=== PATIENT | male | born 1955 | race Two or more races ===

== ENCOUNTER 2024-12-28 06:14 | Day surgery (SDC) | payer OTHER, MEDICAID ==
[~2024-12-28] VITALS: Ht 182.9 cm; Wt 108.9 kg
[~2024-12-28 06:14] MED LIST: ALFU1TAB15 PO; ALPR2TAB6 PO; ATOR40TA52 PO; CHOL50004 PO; CLOP75TA70 PO; COEN400C8 OR; DIPH25CA66 PO; EMPA1TAB PO; ESOM20CA PO; FENO145T27 PO; FINA1TAB12 OR; FINE10TA PO; KRIL300C2 PO; LISI-275 PO; MET50T PO; METF-371 PO; MULT-1018 PO
[2024-12-28] MEDS ORDERED: SUCCINYLCHOLINE CHLORIDE 20 MG/ML 10ML VIAL IV ONE (06:40)
[2024-12-28] MEDS ORDERED: ROCURONIUM 10MG/ML 10ML VIAL IV ONE (06:40)
[2024-12-28] MEDS ORDERED: HYDROmorphone HCL 2 MG/ML VL/or syr ONE (06:51)
[2024-12-28] MEDS ORDERED: fentaNYL CITRATE 100 MCG/2 ML VL ONE ×2 (06:51→09:24)
[2024-12-28] MEDS ORDERED: KETAMINE 50mg/ML 1ml syringe ONE (06:51)
[2024-12-28] MEDS ORDERED: SODIUM CHLORIDE LOCK 50 ML ONE (06:52)
[2024-12-28] MEDS ORDERED: LIDOCAINE 1% INJ PF 5ML AMP ONE ×2 (06:52→11:09)
[2024-12-28] MEDS ORDERED: ONDANSETRON HCL 4 MG/2 ML VIAL ONE ×2 (06:52→12:16)
[2024-12-28] MEDS ORDERED: MIDAZOLAM HCL 2MG/2ML 2ml VIAL (1mg/ml) ONE (06:52)
[2024-12-28] MEDS ORDERED: PROPOFOL 10 MG/ML 20 ML IV ONE (06:52)
[2024-12-28] MEDS ORDERED: LIDOCAINE HCL 2% TOP JELLY 5ML TOP ONE (06:52)
[2024-12-28] MEDS ORDERED: HYDROmorphone HCL 2 MG/ML VL/or syr IV PRN ×3 (07:30→10:30)
[2024-12-28] MEDS ORDERED: METOCLOPRAMIDE HCL 5MG/ml INJ 2ml VIAL IV ONE (07:30)
[2024-12-28] MEDS ORDERED: MORPHINE SULFATE 4 MG/ML SYR/VIAL IV PRN (07:30)
[2024-12-28] MEDS ORDERED: ACCU-CHEK COMFORT CURVE STRIP VI ONE (07:30)
[2024-12-28] MEDS ORDERED: MORPHINE SULFATE INJ 2 MG/ml SYRG IV PRN (08:00)
[2024-12-28] MEDS: EPINEPHrine HCL 1 MG/1 ML AMP ONE (08:30)
[2024-12-28] MEDS: ceFAZolin 2 GM/D5W50ml 50 ML IV ONE (08:35)
[2024-12-28] MEDS: TRANEXAMIC ACID 20 ML ONE (09:05)
[2024-12-28] MEDS ORDERED: NEOSTIGMINE 1 MG/ML INJ (10mg/10ML VIAL) ONE (09:06)
[2024-12-28] MEDS ORDERED: GLYCOPYRROLATE 0.2 MG/ML 1ML VIAL ONE (09:06)
--- NOTE | 2024-12-28 09:47 | DVHOP2 ---
Operative Report - 2 Report Details Date: 12/28/24 Preop Diagnosis: Right shoulder rotator cuff tear and subacromial impingement Postop Diagnosis: Right shoulder rotator cuff tear and subacromial impingement Surgeon: Katelyn Oh MD Track Sweeper: CARINA Lorenz Anesthesiologist: Dr Craft Anesthesia: General, Regional Implant: Medacta all suture triple loaded anchor x1, osseo bioabsorbable anchor x2 Consent: The patient was informed of the risks and benefits of the procedure. These include but are not limited to complications of anesthesia, postoperative infection, incomplete relief of symptoms, recurrence of symptoms, damage to blood vessels, nerves and tendons, deep venous thrombosis, pulmonary embolism and possible need for repeat surgery in the future. Complications: None Estimated Blood Loss: Less than 5 mL Indications for Surgery: The patient is a 69-year-old who presented to the clinic with a history of chronic right shoulder pain. Clinical and radiological evaluation demonstrated near complete rotator cuff tear. Subscapularis large tear was noted. Benefits, risks and treatment alternatives were discussed. Specific complications of the surgery such as neurovascular injury, infection, arthrofibrosis, loss of limb or life were discussed. The patient had failed extensive nonoperative management and wanted to proceed with the surgery. Name of Procedure Performed Right shoulder arthroscopy, extensive debridement, subacromial decompression with acromioplasty, rotator cuff repair including subscapularis Procedure Details Procedure Details: The patient was identified in the preoperative holding area and the surgical site was marked. The consent was verified. The patient was brought into the operating room and placed supine on the operating table. General anesthesia was administered. The beachchair attachment was applied to the operating table. The patient was now brought up into the beachchair position, approximately 60 degrees. The arm was prepped and draped in the usual sterile manner. The arm was placed in the attachment for the spyder, mechanical arm spring. The extremity was examined under anesthesia and was found to have good passive range of motion. A timeout was performed to confirm the identity of the patient, the nature of surgery, the site of surgery, the available of implants and x-rays and allergies to medications A standard posterior portal established. A 30 degree scope was inserted A standard anterior portal was established. A probe was inserted and the findings are as follows: 1. Large significantly retracted subscapularis tendon 2. Mild fraying of the biceps tendon 3. Circumferential degenerative labral tear 4. Grade I-II chondromalacia 5. Significant synovitis 6. Near Full-thickness rotator cuff tear, medium-sized with retraction to humeral head cartilage The subscapularis there was a massive tear. It was significantly retracted. I used a 70 degree scope to free all the adhesions. Extensive debridement of the head to be done for this step for this step. Care had to be taken for the neurovascular bundle as well. Two fiber wire tapes were inserted through the subscapularis tendon. These were now inserted into the osseo anchor. A tap was used to create a hole. The sutures were now inserted into that for a good subscapularis tendon closure. It should be noted that the tendon quality was very poor. However the step was necessary to restore the rotator cuff cable and balance. It would also help stabilize the biceps tendon. High-grade articular surface tear, more than 90% was noted. This corresponded to the MRI findings of severe edema within the rotator cuff tendons suggestive of functional rotator cuff tear. This was taken down from the bursal side. A thorough bursectomy was carried out. CA ligament was released. A thermal ablation device was used to release the rotator cuff tendon off the footprint. This was a medium-sized tear. Minimal retraction was noted. I decided to do a double row repair. A medial row anchor was inserted. A lateral portal was created. The scope was inserted into this portal. An anterolateral portal was created, a cannula was inserted. Excellent visualization was obtained after hemostasis and debridement. A percutaneous superior portal established. A drill guide was inserted. A drill was inserted and the anchor was inserted and deployed. This was a triple loaded anchor. All the sutures were now passed through the rotator cuff tendon. The sutures were tied for excellent medial row fixation. The tapes were not tied. All the sutures were now brought into the lateral row anchor and inserted into the greater tuberosity. Excellent fixation was noted. Watertight closure was noted. Subacromial decompression was completed with acromioplasty to remove approximately 5 mm of acromion as it was downsloping in nature. Irrigation was given and the skin portals were closed with 2-0 nylon Sterile dressing was applied. Local anesthetic was given. Shoulder immobilizer was applied Disposition: Good, the patient was extubated and taken to recovery without any complications. The patient was examined in the recovery and had intact neurovascular exam Plan: To remain in the brace. Follow-up in 1 week. Condition Good Disposition Home KATELYN OH MD December 28, 2024 09:47
[2024-12-28 09:57] VITALS: PULSE 72; RESP 26; TEMP 97; O2SAT 87
[2024-12-28] MEDS: KETOROLAC TROMETH 30 MG/ML 1ML VIAL IV ONE (10:14)
[2024-12-28] MEDS: HYDROmorphone HCL 2 MG/ML VL/or syr IV PRN (10:31)
[2024-12-28] MEDS: ALPRAZolam 0.5 MG TAB PO STA (10:54)
[2024-12-28 11:13] VITALS: PULSE 61; RESP 12; O2SAT 100
[2024-12-28] MEDS ORDERED: ROPIVACAINE 0.5% (5MG/ML) 20ML AMPULE IJ ONE (11:16)
[2024-12-28 11:42] VITALS: BP 161/81; PULSE 64; RESP 14; O2SAT 99
[2024-12-28] MEDS ORDERED: DexAMETHasone SOD PHOS 10MG/1ML VIAL INJ ONE (12:16)
== END 2024-12-28 12:00 | disposition home or self-care (01) ==
LOC: SUR 06:14
PROVIDERS: ATTEND Orthopaedic Surgery Sports Medicine
DX: M75.121 Complete rotator cuff tear or rupture of right shoulder, not specified as traumatic (principal); M25.811 Other specified joint disorders, right shoulder; I10 Essential (primary) hypertension; E11.9 Type 2 diabetes mellitus without complications; F41.9 Anxiety disorder, unspecified; E78.00 Pure hypercholesterolemia, unspecified; F17.200 Nicotine dependence, unspecified, uncomplicated; Z79.899 Other long term (current) drug therapy; Z98.890 Other specified postprocedural states; Z95.1 Presence of aortocoronary bypass graft; M94.211 Chondromalacia, right shoulder; M65.811 Other synovitis and tenosynovitis, right shoulder; S43.431A Superior glenoid labrum lesion of right shoulder, initial encounter; X58.XXXA Exposure to other specified factors, initial encounter; Y93.89 Activity, other specified; Y92.89 Other specified places as the place of occurrence of the external cause; Y99.8 Other external cause status
CPT/HCPCS: 29823; 29826; 29827; 64415; 82962; C1713; J0171; J0330; J0690; J1100; J1171; J1885; J2250; J2405; J2704; J2795; J3010; A4565

== ENCOUNTER 2025-04-01 14:31 | Inpatient (IN) | payer OTHER, MEDICAID ==
[2025-04-01] VITALS (10 sets, daily range): BP systolic 98–128; BP diastolic 36–80; PULSE 88–97; RESP 18–31; TEMP 98–98.1; O2SAT 94–96
[~2025-04-01] VITALS: Ht 182.9 cm; Wt 108.6 kg
--- NOTE | 2025-04-01 14:43 | ED.PDOC ---
History of Present Illness HPI Comments 69-year-old male brought from [facility] because of a saddle PE which was diagnosed this morning. Patient was seen at [facility] for shortness a breath. His saturation was 89% on room air. He has been feeling short of breath since yesterday progressively getting worse to this morning. Was placed on oxygen had a CT angiogram which showed saddle pulmonary embolus with right ventricular strain. Patient has stopped taking his Plavix three weeks ago because he had a prostate surgery. He does have a history of coronary artery disease hypertension. Denies any other symptoms. Time Seen by MD: 14:33 Reviewed Notes: Nurses Notes, Medications, Allergies Allergies: Coded Allergies: NO KNOWN ALLERGIES (Unverified , 07/06/18) Home Meds Reported Medications Cholecalciferol (D-3-5) 5,000 Unit Cap, 2000 UNIT PO DAILY, CAP 12/23/24 Esomeprazole Magnesium Trihydr (Nexium) 20 Mg Cap, 20 MG PO DAILY, CAP 12/23/24 Empagliflozin (Jardiance) 10 Mg Tab, 10 MG PO DAILY, TAB 12/23/24 Krill Oil (KRILL OIL) 300 Mg Cap, 1000 MG PO DAILY, CAP 12/23/24 Coenzyme Q10 (Ubidecarenone) (COQ-10) 400 Mg Cap, 100 MG OR DAILY, CAP 12/23/24 Multiple Vitamin (Multivitamins) Tab, 1 TAB PO DAILY, #30 TAB 2 Refills 12/23/24 Finasteride (FINASTERIDE) 1 Mg Tab, 5 MG OR DAILY, TAB 12/23/24 Clopidogrel Bisulfate (CLOPIDOGREL) 75 Mg Tab, 75 MG PO DAILY, TAB 12/23/24 Atorvastatin Calcium (ATORVASTATIN CALCIUM) 40 Mg Tab, 40 MG PO DAILY, TAB 12/23/24 Finerenone (Kerendia) 10 Mg Tab, 10 MG PO DAILY, TAB 12/23/24 Alfuzosin Hydrochloride (ALFUZOSIN HCL ER) 10 Mg Tab, 10 MG PO BID, TAB 12/23/24 Diphenhydramine Hcl (Benadryl Allergy) 25 Mg Cap, 50 MG PO BID, CAP 12/23/24 Lisinopril (Lisinopril) 5 Mg Tab, 5 MG PO HS for 30 Days, MG 07/06/18 Metoprolol Tartrate (LOPRESSOR TABLET) 50 Mg Tb, 1 TAB PO BID, #60 TAB 5 Refills 07/06/18 Fenofibrate (FENOFIBRATE) 145 Mg Tab, 145 MG PO HS, TAB 07/06/18 Alprazolam (Alprazolam) 2 Mg Tab, 1 TAB PO QID, #90 TAB 07/06/18 Metformin Hydrochloride (Metformin Hcl) 850 Mg Tab, 850 MG PO DAILY for 30 Days, MG 07/06/18 Information Source: Patient, Emergency Med Personnel Mode of Arrival: EMS Severity: Moderate Timing: Hours Duration: Since onset Past Medical History PAST MEDICAL HISTORY: CAD, HTN Surgical History: Denies all surgeries Social History Smoker: Non-Smoker Alcohol: Denies ETOH Use Drugs: Denies Drug Use Constitutional: denies: chills, diaphoresis, fatigue, fever, malaise, sweats, weakness, others EENTM: denies: blurred vision, double vision, ear bleeding, ear discharge, ear drainage, ear pain, ear ringing, eye pain, eye redness, hearing loss, mouth pain, mouth swelling, nasal discharge, nose bleeding, nose congestion, nose pain, photophobia, tearing, throat pain, throat swelling, voice changes, others Respiratory: reports: shortness of breath; denies: cough, hemoptysis, orthopnea, SOB at rest, SOB with excertion, stridor, wheezing, others Cardiovascular: reports: chest pain; denies: dizzy spells, diaphoresis, Dyspnea on exertion, edema, irregular heart beat, left arm pain, lightheadedness, palpitations, PND, syncope, others Gastrointestinal: denies: abdomen distended, abdominal pain, blood streaked bowels, constipated, diarrhea, dysphagia, difficulty swallowing, hematemesis, melena, nausea, poor appetite, poor fluid intake, rectal bleeding, rectal pain, vomiting, others Genitourinary: denies: burning, dysuria, flank pain, frequency, hematuria, incontinence, penile discharge, penile sore, pain, testicle pain, testicle swelling, urgency, others Neurological: denies: dizziness, fainting, headache, left sided numbness, left sided weakness, numbness, paresthesia, pre-existing deficit, right sided numbness, right sided weakness, seizure, speech problems, tingling, tremors, weakness, others Musculoskeletal: denies: back pain, gout, joint pain, joint swelling, muscle pain, muscle stiffness, neck pain, others Integumetry: denies: bruises, change in color, change in hair/nails, dryness, laceration, lesions, lumps, rash, wounds, others Allergic/Immunocompromised: denies: Difficulty Healing, Frequent Infections, Hives, Itching, others Hematologic/Lymphatic: denies: anemia, blood clots, easy bleeding, easy bruising, swollen glands, others Endocrine: denies: excessive hunger, excessive sweating, excessive thirst, excessive urination, flushing, intolerance to cold, intolerance to heat, unexplained weight gain, unexplained weight loss, others Psychiatric: denies: anxiety, bipolar disorder, depression, hopeless, panic disorder, schizophrenia, sleepless, suicidal, others Physical Exam General Appearance: Moderate Distress HEENT: Normal ENT Inspection, Pharynx Normal, TMs Normal Neck: Full Range of Motion, Non-Tender, Normal, Normal Inspection Respiratory: Chest Non-Tender, Lungs Clear, No Accessory Muscle Use, No Respiratory Distress, Normal Breath Sounds Cardiovascular: Tachycardia Breast Exam: Deferred Gastrointestinal: No Organomegaly, Non Tender, No Pulsatile Mass, Normal Bowel Sounds, Soft Genitalia: Deferred Pelvic: Deferred Rectal: Deferred Extremities: No calf tenderness, Normal capillary refill, Normal inspection, Normal range of motion, Non-tender, No pedal edema Musculoskeletal : Apperance: Normal Neurologic: Alert, office specialist II-XII nml as Tested, No Motor Deficits, Normal Affect, Normal Mood, No Sensory Deficits Cerebellar Function: NOT DONE Reflexes: NOT DONE Skin: Dry, Normal Color, Warm Peripheral Pulses: 3+ Radial (R), 3+ Radial (L) Lymphatic: No Adenopathy Was a procedure done? Was a procedure done?: No EKG EKG : Cardiac Rhythm: ST Differential Dx Considerations may include: Pulmonary embolus Electrolyte imbalance X-Ray, Labs, Meds, VS Patient alert. Placed on oxygen. Diagnosed with pulmonary embolus. Vitals stable. EKG reviewed does not show any acute changes. Radiology consultation for thrombectomy. Echocardiogram. Heparin drip. Explained to the patient. Continue monitoring. Time of 1ST Reevaluation: 14:41 Reevaluation 1ST: Unchanged Patient Education/Counseling: Diagnosis, Treatment, Prognosis Family Education/Counseling: No Family Present SEPSIS Sepsis Screen Physician Orders Echo 2d Mode Cardiac Dop (04/01/25 14:33) Troponin-I Hs (04/01/25 14:33) Complete Blood Count (04/01/25 14:33) Comprehensive Metabolic Panel (04/01/25 14:33) PTPTT (04/01/25 14:33) Chest Portable (04/01/25 14:33) Urinalysis (04/01/25 14:33) * Radiologist Consult (04/01/25 14:33) Chest Portable (04/01/25 14:33) [employer] (04/01/25 14:33) Blood Pressure (04/01/25 14:33) Pulse Oximetry (04/01/25 14:33) Sodium Chloride Lock (Saline Lock Ns) (04/01/25 22:00) Heparin Drip/D5w 100units/Ml (04/01/25 14:45) Clopidogrel Bisulfate (Plavix) (04/03/25 10:00) Electrocardigram (04/01/25 14:33) Oxygen Per Hour (04/01/25 14:33) Cardiac Rehabilitation - Outpa (04/01/25 ) Departure 1 Departure Time of Disposition: 14:42 Impression: Primary Impression: Pulmonary embolus Qualified Codes: I26.02 - Saddle embolus of pulmonary artery with acute cor pulmonale Disposition: ADMITTED INPATIENT Admit to: Med Surg Condition: Guarded Critical Care Note Critical Care Time?: Yes (90 min-critical care time only) Stability Stability form required: No Heart Score Heart Score: Heart Score Response (Comments) Value History Slightly Suspicious 0 EKG Normal 0 Age >65 2 Risk Factors >3 or Hx ASHD 2 Troponin >3 x's Normal limit 2 Total 6 RONAL WHITEHEAD MD Apr 01, 2025 14:43
[2025-04-01] MEDS: HEPARIN DRIP/D5W 100UNITS/ML 250 ML IV SCH ×2 (14:45→21:30)
[2025-04-01 15:00] LABS: Hematocrit 40.8 % (41.0-53.0); Hemoglobin 13.9 g/dL (13.5-17.5); Mean Corpuscular Hemoglobin 30.2 pg (28.0-32.0); Mean Corpuscular Volume 88.8 fL (80.0-100.0); Nucleated Red Blood Cells % 0.1 %
--- NOTE | 2025-04-01 15:08 | DVH ---
CHEST RADIOGRAPH Indication: STEMI Technique: Single frontal view of the chest was obtained Comparison: None FINDINGS: Lines and Tubes: None Lungs: No focal consolidation. Pleura: No effusion. No pneumothorax. Cardiomediastinal contours: Unremarkable Bones: No acute osseous abnormality. IMPRESSION: 1. No acute cardiopulmonary disease.
[2025-04-01 15:13] LABS: Alanine Aminotransferase 16 U/L (7-40); Albumin 4.1 g/dL (3.2-4.8); Alkaline Phosphatase 66 U/L (46-116); Anion Gap 14 (5-15); BUN/Creatinine Ratio 12.8 (10.0-20.0); Bilirubin, Total 0.3 mg/dL (0.2-1.0); Blood Urea Nitrogen 23 mg/dL (9-23); Calcium 8.6 mg/dL (8.7-10.4); Carbon Dioxide 18 mmol/L (20-31); Chloride 114 mmol/L (98-107); Glucose 137 mg/dL (74-106); Potassium 3.8 mmol/L (3.5-5.1); Sodium 146 mmol/L (136-145); Total Protein 6.3 g/dL (5.7-8.2)
[2025-04-01] MEDS: IODIXANOL 320MG/ML 100ML BTL IV ONE (15:28)
[2025-04-01] MEDS: HEPARIN IN NS 1000Units/500mL 1,500 ML ONE (15:28)
[2025-04-01 15:29] LABS: INR 1.16 (0.9-1.15); Prothrombin Time 12.1 sec (9.3-11.8)
[2025-04-01 15:31] LABS: Partial Thromboplastin Time 101.8 SEC (24.5-34.5)
--- NOTE | 2025-04-01 15:36 | DVHSR ---
APPROVED REPORT EXAM: Two-dimensional and M-mode echocardiogram with Doppler and color Doppler. INDICATION PE? DIMENSIONS LVDd3.6 (3.8-5.7cm)LA (2D) (1.9-4.0cm)Aortic Root3.8 (2.0-3.7cm) LVDs2.7 (2.5-4.0cm)LA (MM) (1.9-4.0cm)Aortic Cusp Exc1.7 (1.5-2.0cm) EF (%) 53.0 (55-70%)Rt. Atrium (1.9-4.0cm)Asc. Aorta cm IVSd1.5 (0.7-1.1cm)RV (D) (1.8-2.4cm) PWd1.9 (0.7-1.1cm) Mitral Valve MitralMitral Stenosis E/A ratio0.02D MVAcm2 Aortic Valve Aortic ValveAortic Stenosis V10.62m/Elier Mean GR.3mmHg V21.11m/Elier Peak GR.5mmHg LVOT Diameter2.5 (1.8-2.4cm)Doppler AVA2.74cm2 Tricuspid Valve TR Velocity3.01m/s [id number] Other Information Technically limited study due to body habitus and patient position. Conclusion lvef 50% RV enlarged and dilated, there is RV dysfunction there is abnormal interventricular septal motion mild Mitral regurg mild to modreate tricuspid regurg
[2025-04-01] MEDS: LIDOCAINE 2%HCL (LOCAL ANESTH.) INJ 20ML MDV ONE (15:55)
[2025-04-01] MEDS: fentaNYL CITRATE 100 MCG/2 ML VL ONE (15:55)
[2025-04-01] MEDS: MIDAZOLAM HCL 2MG/2ML 2ml VIAL (1mg/ml) ONE ×3 (15:55→16:17)
[2025-04-01] MEDS: diphenhdrAMINE HCL 50 MG/1 ML VL ONE (16:25)
[2025-04-01] MEDS: HEPARIN 1,000 UNITS/ml 1ML VIAL ONE (16:34)
[2025-04-01] MEDS ORDERED: MORPHINE SULFATE INJ 2 MG/ml SYRG IV PRN (18:00)
[2025-04-01] MEDS ORDERED: NITROGLYCERIN 0.4 MG SL TAB SL PRN (18:00)
[2025-04-01 19:50] LABS: INR 1.12 (0.9-1.15); Prothrombin Time 11.7 sec (9.3-11.8)
[2025-04-01 20:03] LABS: Partial Thromboplastin Time 136.8 SEC (24.5-34.5)
[2025-04-01] MEDS: SODIUM CHLOR 0.9% PF (SALINE LOCK) 10ML VIAL/SYR IV SCH (22:04)
[2025-04-01 22:16] LABS: INR 1.08 (0.9-1.15); Partial Thromboplastin Time 52.7 SEC (24.5-34.5); Prothrombin Time 11.4 sec (9.3-11.8)
[2025-04-02 01:00] VITALS: BP 91/55; PULSE 78; RESP 18; TEMP 97.1; O2SAT 98
[2025-04-02 04:17] LABS: Hematocrit 38.1 % (41.0-53.0); Hemoglobin 13.2 g/dL (13.5-17.5); Mean Corpuscular Hemoglobin 30.1 pg (28.0-32.0); Mean Corpuscular Volume 87.2 fL (80.0-100.0); Nucleated Red Blood Cells % 0.0 %
[2025-04-02 04:37] LABS: Alanine Aminotransferase 16 U/L (7-40); Albumin 4.4 g/dL (3.2-4.8); Alkaline Phosphatase 69 U/L (46-116); Anion Gap 13 (5-15); BUN/Creatinine Ratio 14.0 (10.0-20.0); Calcium 9.4 mg/dL (8.7-10.4); Carbon Dioxide 22 mmol/L (20-31); Potassium 4.1 mmol/L (3.5-5.1); Sodium 142 mmol/L (136-145); Total Protein 6.6 g/dL (5.7-8.2)
[2025-04-02 04:38] LABS: Bilirubin, Total 0.4 mg/dL (0.2-1.0); Blood Urea Nitrogen 29 mg/dL (9-23); Chloride 107 mmol/L (98-107); Glucose 141 mg/dL (74-106)
[2025-04-02 08:00] VITALS: PULSE 86; RESP 18
[2025-04-02 09:00] VITALS: BP 124/80; PULSE 87; RESP 17; TEMP 97.9; O2SAT 94
[2025-04-02 11:52] LABS: INR 1.11 (0.9-1.15); Prothrombin Time 11.6 sec (9.3-11.8)
[2025-04-02 11:56] LABS: Partial Thromboplastin Time 72.3 SEC (24.5-34.5)
[2025-04-02 14:38] LABS: Urine Protein, UAD 1+ (Negative)
--- NOTE | 2025-04-02 16:28 | DVHHP2 ---
History of Present Illness Reason for Visit: Shortness of breaths History of Present Illness 69-year-old male brought from [facility] because of a saddle PE which was diagnosed this morning. Patient was seen at [facility] for shortness a breath. His saturation was 89% on room air. He has been feeling short of breath since yesterday progressively getting worse to this morning. Was placed on oxygen had a CT angiogram which showed saddle pulmonary embolus with right ventricular strain. Patient has stopped taking his Plavix three weeks ago because he had a prostate surgery. He does have a history of coronary artery disease hypertension. Denies any other symptoms. Patient apparently taken to the laborer [facility] p[facility] for thrombectomy. Subsequently was admitted to hospital overnight. Today I was called to take over patient's care given he belongs to [facility]. Patient clinically stable at present. Had an echocardiogram. No complaints of chest pain or shortness for breath. Past Medical History CAD, HTN Past Surgical History: None Family History: Hyperlipidemia, Hypertension Smoke: No ALCOHOL: occassional Lives: with Family Review of Systems Review of Systems No complaints of chest pain or shortness for breath. Other review of systems reviewed normal Allergies: Coded Allergies: NO KNOWN ALLERGIES (Unverified , 07/06/18) Medications Current Medications Medications Dose Ordered Sig/Raymundo Route Start Time Stop Time Status Last Admin Dose Admin Sodium Chloride 10 ml Q8HR IV 04/01/25 22:00 04/02/25 14:00 10 ML Clopidogrel Bisulfate 75 mg DAILY PO 04/03/25 10:00 Nitroglycerin 0.4 mg Q5MINP PRN SL 04/01/25 18:00 Morphine Sulfate 2 mg Q30M PRN IV 04/01/25 18:00 Heparin Sodium/ Dextrose 250 ml @ 15 mls/hr [id number] IV 04/01/25 21:30 04/02/25 02:17 15 MLS/HR Exam Vital Signs Vital Signs Date Time Temp Pulse Resp B/P (MAP) Pulse Ox O2 Delivery O2 Flow Rate FiO2 04/02/25 09:00 97.9 87 17 124/80 (95) 94 97.9 04/01/25 20:00 Room Air* 0 21 Exam Alert awake oriented to place and person comfortable in bed without distress. HEENT neck supple no JVD. Heart regular rate and rhythm S1-S2. Lungs fair air movement without rales wheezes. Abdomen obese soft nontender positive bowel sounds. Extremities no edema positive distal pedal pulses. Labs/Xrays Labs Test 04/02/25 15:30 04/02/25 12:00 04/02/25 03:58 04/01/25 14:46 Range/Units Urine Color Red H Yellow Urine Clarity Ex. turbid Clear Urine pH 7.5 5.0-9.0 Urine Specific [place] 1.025 1.001-1.035 Urine Protein 1+ H Negative Urine Ketones Negative Negative Urine Blood 3+ H Negative /uL Urine Nitrite Negative Negative Urine Bilirubin Negative Negative Urine Urobilinogen Normal Negative mg/dL Urine Leukocyte Esterase 1+ Negative /uL Urine Glucose 4+ H Normal mg/dL White Blood Count 7.4 # 4.4-10.8 10^3/uL Red Blood Count 4.37 L 4.5-5.90 10^6/uL Hemoglobin 13.2 L 13.5-17.5 g/dL Hematocrit 38.1 L 41.0-53.0 % Mean Corpuscular Volume 87.2 80.0-100.0 fL Mean Corpuscular Hemoglobin 30.1 28.0-32.0 pg Mean Corpuscular Hemoglobin Concent 34.6 32.0-36.0 g/dL Red Cell Distribution Width 14.8 H 11.8-14.3 % Platelet Count 204 140-450 10^3/uL Mean Platelet Volume 7.4 6.9-10.8 fL Neutrophils (%) (Auto) 53.3 37.0-80.0 % Lymphocytes (%) (Auto) 32.3 10.0-50.0 % Monocytes (%) (Auto) 9.1 0.0-12.0 % Eosinophils (%) (Auto) 4.2 0.0-7.0 % Basophils (%) (Auto) 1.1 0.0-2.0 % Neutrophils # (Auto) 3.9 1.6-8.6 10 ^3/uL Lymphocytes # (Auto) 2.4 0.4-5.4 10 ^3/uL Monocytes # (Auto) 0.7 0-1.3 10 ^3/uL Eosinophils # (Auto) 0.3 0-0.8 10 ^3/uL Basophils # (Auto) 0.1 0-0.2 10 ^3/uL Nucleated Red Blood Cells 0.0 % Sodium Level 142 136-145 mmol/L Potassium Level 4.1 3.5-5.1 mmol/L Chloride Level 107 98-107 mmol/L Carbon Dioxide Level 22 20-31 mmol/L Anion Gap 13 5-15 Blood Urea Nitrogen 29 H 9-23 mg/dL Creatinine 2.07 H 0.700-1.30 mg/dL Glomerular Filtration Rate Calc 34 >90 mL/min BUN/Creatinine Ratio 14.0 10.0-20.0 Serum Glucose 141 H 74-106 mg/dL Calcium Level 9.4 8.7-10.4 mg/dL Total Bilirubin 0.4 0.2-1.0 mg/dL Aspartate Amino Transferase (AST) 24 13-40 U/L Alanine Aminotransferase (ALT) 16 7-40 U/L Alkaline Phosphatase 69 46-116 U/L Total Protein 6.6 5.7-8.2 g/dL Albumin 4.4 3.2-4.8 g/dL Troponin I High Sensitivity 400 *H </=54 ng/L SEPSIS Sepsis Screen Date sepsis recognized/suspect: Apr 01, 2025 Time Sepsis recognized/suspect: 1429 Recent Procedure: No On Antibiotic Therapy: No Respiratory Rate >20: Yes Heart Rate >90: Yes Temp<36 C (96.8 F) or >38.3 C: No SBP <90 or MAP <65 mmHG: No New Acute Mental Status Change: No Is the patient on CPAP, BIPAP,: No Physician Orders PTPTT (04/02/25 15:30) Heparin Per Pharmacy Protocol (04/02/25 12:03) Vital Signs Date Time Temp Pulse Resp B/P (MAP) Pulse Ox O2 Delivery O2 Flow Rate FiO2 04/02/25 09:00 97.9 87 17 124/80 (95) 94 97.9 Assessment/Plan Assessment/Plan Acute saddle pulmonary embolism status post thrombectomy for ER physician Dr. Benny navarro. Currently he is stable. Echocardiogram is done. Continue current IV heparin drip per protocol. We will transitioned to Eliquis in the next 24 hours. Otherwise resume rest of his home medications. Supportive care and treatment. I will order ultrasound of the legs to see if he has any DVT. Discussed with the patient and nurse regarding care plan. Plan discussed with: Patient, Other Problem List: (1) HTN (hypertension) (2) DM (diabetes mellitus) (3) Chest pain due to CAD (4) Pulmonary embolus Date of Service: Apr 02, 2025 Billing Provider: LYNDSEY GÓMEZ MD Common Visit Codes: [id number] INP/OBS CARE(MOD) LYNDSEY GÓMEZ MD Apr 02, 2025 16:28
[2025-04-02 16:29] LABS: INR 1.08 (0.9-1.15); Prothrombin Time 11.4 sec (9.3-11.8)
[2025-04-02] MEDS ORDERED: HYDROcodone-ACET 5/325MG TAB PO PRN (16:30)
[2025-04-02] MEDS ORDERED: MORPHINE SULFATE INJ 2 MG/ml SYRG IV PRN (16:30)
[2025-04-02] MEDS ORDERED: ONDANSETRON HCL 4 MG/2 ML VIAL IV PRN (16:30)
[2025-04-02 16:31] LABS: Partial Thromboplastin Time 74.2 SEC (24.5-34.5)
--- NOTE | 2025-04-02 17:37 | DVH ---
Bilateral lower extremity venous duplex Clinical History: PE Comparison: None Technique: Duplex Doppler evaluation of the deep venous systems of both lower extremities from the common femora l veins to the popliteal veins including color Doppler and spectral/pulsed waveform analysis was perf ormed. Findings: RIGHT SIDE: The common femoral vein not visible due to patch in groin Right greater saphenous vein not visible 2 2 in groin area The femoral vein demonstrates appropriate compressibility and waveform variability. The deep femoral vein demonstrates appropriate compressibility and waveform variability. The popliteal vein demonstrates demonstrates slow flow (Rouleaux flow) There is normal compressibility at the tibioperoneal trunk. LEFT SIDE: The common femoral vein demonstrates appropriate compressibility and waveform variability. There is compressibility/patency of the great saphenous vein at the proximal thigh. The femoral vein demonstrates appropriate compressibility and waveform variability. The deep femoral vein demonstrates appropriate compressibility and waveform variability. The popliteal vein demonstrates appropriate compressibility and waveform variability. There is normal compressibility at the tibioperoneal trunk. Impression: 1. Right common femoral vein and saphenous vein are not visible due to patch. Right popliteal vein sh ows slow flow (Rouleaux flow.) 2. No left femoropopliteal venous thrombosis.
[2025-04-02 20:00] VITALS: PULSE 115; RESP 18
[2025-04-02 21:00] VITALS: BP 129/55; PULSE 112; RESP 17; TEMP 98.1; O2SAT 95
[2025-04-02] MEDS: METOPROLOL TARTRATE 50 MG TAB PO SCH (22:00)
[2025-04-02] MEDS: FAMOTIDINE 20 MG TAB PO SCH (22:01)
[2025-04-02] MEDS: ATORVASTATIN 20 MG TAB PO SCH (22:02)
[2025-04-03 01:00] VITALS: BP 116/81; PULSE 83; RESP 18; TEMP 98.1; O2SAT 96
[2025-04-03 05:00] VITALS: BP 133/71; PULSE 82; RESP 18; TEMP 98.2; O2SAT 95
[2025-04-03 07:01] LABS: Hematocrit 33.7 % (41.0-53.0); Hemoglobin 12.0 g/dL (13.5-17.5); Mean Corpuscular Hemoglobin 31.1 pg (28.0-32.0); Mean Corpuscular Volume 87.4 fL (80.0-100.0); Nucleated Red Blood Cells % 0.1 %
[2025-04-03 07:12] LABS: Potassium 4.3 mmol/L (3.5-5.1); Sodium 139 mmol/L (136-145)
[2025-04-03 07:13] LABS: Anion Gap 10 (5-15); Calcium 9.4 mg/dL (8.7-10.4); Carbon Dioxide 22 mmol/L (20-31)
[2025-04-03 07:18] LABS: BUN/Creatinine Ratio 9.5 (10.0-20.0); Blood Urea Nitrogen 19 mg/dL (9-23); Chloride 107 mmol/L (98-107); Glucose 177 mg/dL (74-106)
[2025-04-03 08:00] VITALS: PULSE 82; RESP 16; O2SAT 95
[2025-04-03 08:03] LABS: INR 1.08 (0.9-1.15); Partial Thromboplastin Time 65.6 SEC (24.5-34.5); Prothrombin Time 11.4 sec (9.3-11.8)
[2025-04-03 09:00] VITALS: BP 160/80; PULSE 82; RESP 16; TEMP 97.5; O2SAT 95
[2025-04-03] MEDS ORDERED: CLOPIDOGREL BISULFATE 75 MG TAB PO SCH (10:00)
[2025-04-03] MEDS: FINASTERIDE 5 MG TAB PO SCH (10:08)
[2025-04-03] MEDS: EMPAGLIFLOZIN 10 MG TAB PO SCH (10:09)
--- NOTE | 2025-04-03 10:30 | CONS ---
Pharmacy Clinical Information: HEPARIN DRIP UPDATE PTT 65.6 NO CHANGE NEXT PTT 04/04/25 @0500 COMMUNICATED WITH ALEJANDRO PERKINS PHARMACIST Apr 03, 2025 10:30
--- NOTE | 2025-04-03 11:19 | DVHINCON2 ---
Date of service: Apr 03, 2025 History of Present Illness 69 yo M with hx of cad s/p PCI with me 2018, recent off plavix for prostate surgery, also had shoulder surgery in december 2024, admitted for submassive PE s/p mechanical thrombectomy on . pt feels well and asking to go home. Past Medical History reviewed Family History: FH: heart attack G8 MOTHER G8 FATHER Allergies: Coded Allergies: NO KNOWN ALLERGIES (Unverified , 07/06/18) Home Meds Reported Medications Cholecalciferol (D-3-5) 5,000 Unit Cap, 2000 UNIT PO DAILY, CAP 12/23/24 Esomeprazole Magnesium Trihydr (Nexium) 20 Mg Cap, 20 MG PO DAILY, CAP 12/23/24 Empagliflozin (Jardiance) 10 Mg Tab, 10 MG PO DAILY, TAB 12/23/24 Krill Oil (KRILL OIL) 300 Mg Cap, 1000 MG PO DAILY, CAP 12/23/24 Coenzyme Q10 (Ubidecarenone) (COQ-10) 400 Mg Cap, 100 MG OR DAILY, CAP 12/23/24 Multiple Vitamin (Multivitamins) Tab, 1 TAB PO DAILY, #30 TAB 2 Refills 12/23/24 Finasteride (FINASTERIDE) 1 Mg Tab, 5 MG OR DAILY, TAB 12/23/24 Clopidogrel Bisulfate (CLOPIDOGREL) 75 Mg Tab, 75 MG PO DAILY, TAB 12/23/24 Atorvastatin Calcium (ATORVASTATIN CALCIUM) 40 Mg Tab, 40 MG PO DAILY, TAB 12/23/24 Finerenone (Kerendia) 10 Mg Tab, 10 MG PO DAILY, TAB 12/23/24 Diphenhydramine Hcl (Benadryl Allergy) 25 Mg Cap, 50 MG PO BID, CAP 12/23/24 Lisinopril (Lisinopril) 5 Mg Tab, 5 MG PO HS for 30 Days, MG 07/06/18 Metoprolol Tartrate (LOPRESSOR TABLET) 50 Mg Tb, 1 TAB PO BID, #60 TAB 5 Refills 07/06/18 Fenofibrate (FENOFIBRATE) 145 Mg Tab, 145 MG PO HS, TAB 07/06/18 Alprazolam (Alprazolam) 2 Mg Tab, 1 TAB PO QID, #90 TAB 07/06/18 Metformin Hydrochloride (Metformin Hcl) 850 Mg Tab, 850 MG PO DAILY for 30 Days, MG 07/06/18 Discontinued Reported Medications Alfuzosin Hydrochloride (ALFUZOSIN HCL ER) 10 Mg Tab, 10 MG PO BID, TAB 12/23/24 Current Medications Current Medications Medications (Trade) Dose Ordered Sig/Raymundo Route PRN Reason Start Time Stop Time Status Last Admin Clopidogrel Bisulfate (Plavix) 75 mg DAILY PO 04/03/25 10:00 04/02/25 16:46 DC Empaglifozin (Jardiance) 10 mg DAILY PO 04/03/25 10:00 04/03/25 10:09 Metoprolol Tartrate (Lopressor Tablet) 50 mg BID PO 04/02/25 22:00 04/03/25 10:09 Atorvastatin Calcium (Lipitor) 40 mg HS PO 04/02/25 22:00 04/02/25 22:02 Patient Own Medication 145 mg HS PO 04/02/25 22:00 Finasteride (Proscar Tablet) 5 mg DAILY PO 04/03/25 10:00 04/03/25 10:08 Ondansetron HCl (Zofran) 4 mg Q4HPRN PRN IV NAUSEA / VOMITING 04/02/25 16:30 Morphine Sulfate 2 mg Q6HPRN PRN IV SEVERE PAIN (7-10 PAIN SCALE) 04/02/25 16:30 Acetaminophen/ Hydrocodone Bitart ([place]isman 5/325MG Tab) 1 tab Q6HPRN PRN PO MODERATE PAIN (4-6 PAIN SCALE) 04/02/25 16:30 Famotidine (Pepcid Tablet) 20 mg HS PO 04/02/25 22:00 04/02/25 22:01 Review of Systems 10 pt ros otherwise negative Vital Signs Vital Signs Date Time Temp Pulse Resp B/P (MAP) Pulse Ox O2 Delivery O2 Flow Rate FiO2 04/03/25 10:09 82 160/80 04/03/25 09:00 97.5 16 95 97.5 04/02/25 20:00 Room Air* 0 21 Physical Exam nad s1 s2 rrr ctab soft nt/nd no edema Labs/Diagnostic Data Labs Test 04/03/25 06:42 04/02/25 12:00 04/02/25 03:58 04/01/25 14:46 Range/Units White Blood Count 5.0 # 4.4-10.8 10^3/uL Red Blood Count 3.86 L 4.5-5.90 10^6/uL Hemoglobin 12.0 L 13.5-17.5 g/dL Hematocrit 33.7 #L 41.0-53.0 % Mean Corpuscular Volume 87.4 80.0-100.0 fL Mean Corpuscular Hemoglobin 31.1 28.0-32.0 pg Mean Corpuscular Hemoglobin Concent 35.6 32.0-36.0 g/dL Red Cell Distribution Width 14.7 H 11.8-14.3 % Platelet Count 185 140-450 10^3/uL Mean Platelet Volume 7.4 6.9-10.8 fL Neutrophils (%) (Auto) 49.0 37.0-80.0 % Lymphocytes (%) (Auto) 31.7 10.0-50.0 % Monocytes (%) (Auto) 11.6 0.0-12.0 % Eosinophils (%) (Auto) 6.8 0.0-7.0 % Basophils (%) (Auto) 0.9 0.0-2.0 % Neutrophils # (Auto) 2.4 1.6-8.6 10 ^3/uL Lymphocytes # (Auto) 1.6 0.4-5.4 10 ^3/uL Monocytes # (Auto) 0.6 0-1.3 10 ^3/uL Eosinophils # (Auto) 0.3 0-0.8 10 ^3/uL Basophils # (Auto) 0 0-0.2 10 ^3/uL Nucleated Red Blood Cells 0.1 % Prothrombin Time 11.4 9.3-11.8 sec Prothrombin Time INR 1.08 0.9-1.15 Activated Partial Thromboplast Time 65.6 H 24.5-34.5 SEC Sodium Level 139 136-145 mmol/L Potassium Level 4.3 3.5-5.1 mmol/L Chloride Level 107 98-107 mmol/L Carbon Dioxide Level 22 20-31 mmol/L Anion Gap 10 5-15 Blood Urea Nitrogen 19 # 9-23 mg/dL Creatinine 1.99 H 0.700-1.30 mg/dL Glomerular Filtration Rate Calc 36 >90 mL/min BUN/Creatinine Ratio 9.5 L 10.0-20.0 Serum Glucose 177 H 74-106 mg/dL Calcium Level 9.4 8.7-10.4 mg/dL Urine Color Red H Yellow Urine Clarity Ex. turbid Clear Urine pH 7.5 5.0-9.0 Urine Specific [place] 1.025 1.001-1.035 Urine Protein 1+ H Negative Urine Ketones Negative Negative Urine Blood 3+ H Negative /uL Urine Nitrite Negative Negative Urine Bilirubin Negative Negative Urine Urobilinogen Normal Negative mg/dL Urine Leukocyte Esterase 1+ Negative /uL Urine Glucose 4+ H Normal mg/dL Total Bilirubin 0.4 0.2-1.0 mg/dL Aspartate Amino Transferase (AST) 24 13-40 U/L Alanine Aminotransferase (ALT) 16 7-40 U/L Alkaline Phosphatase 69 46-116 U/L Total Protein 6.6 5.7-8.2 g/dL Albumin 4.4 3.2-4.8 g/dL Troponin I High Sensitivity 400 *H </=54 ng/L Assessment submassive PE s/p thrombectomy RV strain cad s/p pci obesity HTN HL Plan/Recommendation PE could be 2/2 to recent surgery, not related to off plavix dc plavix all together asa 81mg doac per hospitalist dr huddleston--xarelto vs eliquis and loading dose as appropriate outpt fu with me franklin BB and heart meds Plan discussed with: Patient JUAN OVERTON MD Apr 03, 2025 11:19
[2025-04-03 13:00] VITALS: BP 126/73; PULSE 73; RESP 17; TEMP 97.1; O2SAT 95
[2025-04-03] MEDS ORDERED: APIX5TAB4 PO (15:04)
[2025-04-03] MEDS ORDERED: ATOR40TA52 PO (15:04)
[2025-04-03] MEDS ORDERED: ASPI81TA28 PO (15:04)
[2025-04-03] MEDS ORDERED: ESOM20CA PO (15:04)
--- NOTE | 2025-04-03 15:06 | DVHDS2 ---
Discharge Summary Date of Admission Apr 01, 2025 at 17:57 Date of Discharge: Apr 03, 2025 Labs/Diagnostic Data: Laboratory Results Test 04/03/25 06:42 04/02/25 12:00 04/02/25 03:58 04/01/25 14:46 White Blood Count 5.0 10^3/uL (4.4-10.8) Red Blood Count 3.86 10^6/uL (4.5-5.90) Hemoglobin 12.0 g/dL (13.5-17.5) Hematocrit 33.7 % (41.0-53.0) Mean Corpuscular Volume 87.4 fL (80.0-100.0) Mean Corpuscular Hemoglobin 31.1 pg (28.0-32.0) Mean Corpuscular Hemoglobin Concent 35.6 g/dL (32.0-36.0) Red Cell Distribution Width 14.7 % (11.8-14.3) Platelet Count 185 10^3/uL (140-450) Mean Platelet Volume 7.4 fL (6.9-10.8) Neutrophils (%) (Auto) 49.0 % (37.0-80.0) Lymphocytes (%) (Auto) 31.7 % (10.0-50.0) Monocytes (%) (Auto) 11.6 % (0.0-12.0) Eosinophils (%) (Auto) 6.8 % (0.0-7.0) Basophils (%) (Auto) 0.9 % (0.0-2.0) Neutrophils # (Auto) 2.4 10 ^3/uL (1.6-8.6) Lymphocytes # (Auto) 1.6 10 ^3/uL (0.4-5.4) Monocytes # (Auto) 0.6 10 ^3/uL (0-1.3) Eosinophils # (Auto) 0.3 10 ^3/uL (0-0.8) Basophils # (Auto) 0 10 ^3/uL (0-0.2) Nucleated Red Blood Cells 0.1 % Prothrombin Time 11.4 sec (9.3-11.8) Prothrombin Time INR 1.08 (0.9-1.15) Activated Partial Thromboplast Time 65.6 SEC (24.5-34.5) Sodium Level 139 mmol/L (136-145) Potassium Level 4.3 mmol/L (3.5-5.1) Chloride Level 107 mmol/L (98-107) Carbon Dioxide Level 22 mmol/L (20-31) Anion Gap 10 (5-15) Blood Urea Nitrogen 19 mg/dL (9-23) Creatinine 1.99 mg/dL (0.700-1.30) Glomerular Filtration Rate Calc 36 mL/min (>90) BUN/Creatinine Ratio 9.5 (10.0-20.0) Serum Glucose 177 mg/dL (74-106) Calcium Level 9.4 mg/dL (8.7-10.4) Urine Color Red (Yellow) Urine Clarity Ex. turbid (Clear) Urine pH 7.5 (5.0-9.0) Urine Specific [place] 1.025 (1.001-1.035) Urine Protein 1+ (Negative) Urine Ketones Negative (Negative) Urine Blood 3+ /uL (Negative) Urine Nitrite Negative (Negative) Urine Bilirubin Negative (Negative) Urine Urobilinogen Normal mg/dL (Negative) Urine Leukocyte Esterase 1+ /uL (Negative) Urine Glucose 4+ mg/dL (Normal) Total Bilirubin 0.4 mg/dL (0.2-1.0) Aspartate Amino Transferase (AST) 24 U/L (13-40) Alanine Aminotransferase (ALT) 16 U/L (7-40) Alkaline Phosphatase 69 U/L (46-116) Total Protein 6.6 g/dL (5.7-8.2) Albumin 4.4 g/dL (3.2-4.8) Troponin I High Sensitivity 400 ng/L (</=54) Other Laboratory Tests 04/03/25 06:42 Brief Hx & Hospital Course: 69-year-old male brought from [facility] because of a saddle PE which was diagnosed this morning. Patient was seen at [facility] for shortness a breath. His saturation was 89% on room air. He has been feeling short of breath since yesterday progressively getting worse to this morning. Was placed on oxygen had a CT angiogram which showed saddle pulmonary embolus with right ventricular strain. Patient has stopped taking his Plavix three weeks ago because he had a prostate surgery. He does have a history of coronary artery disease hypertension. Denies any other symptoms. Patient apparently taken to the propagator laborer for thrombectomy. Subsequently was admitted to hospital overnight. Today I was called to take over patient's care given he belongs to [facility]. Patient clinically stable at present. Had an echocardiogram. No complaints of chest pain or shortness for breath. He did well post thrombectomy. Oxygenating normally on room air. Getting out of bed ambulating. His IV heparin has been discontinued and transitioned to oral Eliquis. Patient had a pink tinged urine however it is felt the benefits outweigh the risks at present therefore advised to continue the Eliquis. If he has significant hematuria advised to follow up with the PCP and urologist. Patient otherwise given clinically stable back to baseline normal status has been discharged home in stable condition. I have talked with the patient regarding his hospital diagnosis, discharge medications, discharge instructions and follow-up plan of care. He has verbalized understanding of these and agree with the care plan as outlined. Operations or Procedures PROCEDURE: Pulmonary angiography and interventions Procedural Personnel Attending physician(s): Nazia Mas Fellow physician(s): None Resident physician(s): None Advanced practice provider(s): None Pre-procedure diagnosis: Pulmonary emboli Post-procedure diagnosis: Same Indication: Pulmonary embolism Additional clinical history: None Complications: No immediate complications. IMPRESSION: Angiography of the bilateral main pulmonary arteries demonstrates minimal residual clot burden of the lingular artery following large bore mechanical thrombectomy. No residual clot burden of the right lung. Decrease of pulmonary artery MAP (40 mmHg to 13 mmHg) Plan: Suture mediated venous hemostatic device over right common femoral vein access site to be removed 12-24 hours post procedure. PROCEDURE SUMMARY: - Venous access with ultrasound guidance - Bilateral main pulmonary angiography - Superselective pulmonary angiography: None - Pulmonary arterial interventions as described below - Additional procedure(s): None PROCEDURE DETAILS: Pre-procedure Consent: Informed consent for the procedure including risks, benefits and alternatives was obtained and time-out was performed prior to the procedure. Preparation: The site was prepared and draped using maximal sterile barrier technique including cutaneous antisepsis. Anesthesia/sedation Level of anesthesia/sedation: Moderate sedation (conscious sedation) Anesthesia/sedation administered by: Independent trained observer under attending supervision with continuous monitoring of the patient s level of consciousness and physiologic status Total intra-service sedation time (minutes): 90 Access Local anesthesia was administered. The vessel was sonographically evaluated and determined to be patent. Real time ultrasound was used to visualize needle entry into the vessel and a permanent image was stored. A 24 sheath was placed. Vein accessed: Right common femoral vein Access technique: Micropuncture set with 21 gauge needle Pulmonary angiography and interventions The pulmonary arterial system was catheterized using 6 [place] angled pigtail catheter/glidewire advantage/amplatz wire. Indication for angiography: Diagnostic angiography - There was no prior catheter-based angiographic study available and a full diagnostic study was performed. The decision to intervene was based on the diagnostic study. Vessel catheterized: Right main pulmonary artery Findings: No residual clot burden Vessel catheterized: Left main pulmonary artery Findings: Small volume clot burden of the lingular artery Thrombectomy Mechanical thrombectomy location: bilateral main pulmonary arteries, right interlobar artery, left lower lobe artery Mechanical thrombectomy device: Flowtriever (24 Fr and 20 Fr) Mechanical thrombectomy type: Aspiration Post-intervention angiography: Minimal residual clot burden of the lingular artery Pressure measurements Pressure measurements were obtained via multi-sidehole catheter. Location of pressure measurement: Main pulmonary artery - Systolic pressure (mmHg): Pre 50, post 29 - Diastolic pressure (mmHg): Pre 32, post 3 - Mean pressure (mmHg): Pre 40, post 13 Closure The sheath was removed and hemostasis was achieved. Venous closure technique: Other-FlowStasis Contrast Contrast agent: Visipaque 320 Contrast volume (mL): 40 Radiation Dose Fluoroscopy time (mm:ss): 16:03 Reference air kerma (mGy): 197 Kerma area product (Gy-cm2): 42.78 Additional Details Additional description of procedure: None Registry event: None/3/g Device used: None Equipment details: None Unique Device Identifiers: Not available Specimens removed: None Estimated blood loss (mL): 11-50 Standardized report: [email or web address] Attestation Signer name: Nazia Mas I attest that I was present for the entire procedure. I reviewed the stored images and agree with the report as written. ATED BY: NAZIA MAS MD DICTATED DATE/TIME: 04/04/25 0914 Condition at Discharge: Stable Final Diagnosis/Problems List status post pulmonary ebolism with thrombectomy, history of coronary artery disease, hypercholesterolemia Discharge Disposition: Home Discharge Instruct/Medications Diet: Consistent carbohydrate, Cardiac 2g Na,low cholest Activity: No Restrictions, As Tolerated Activity comment: No strenuous/vigorous activity or exercise for next two weeks due to large pulmonary embolism. Follow Up/Referral: Your primary care physician next week and the bale tie machine operator Dr. Arteaga after two weeks follow up for pulmonary embolism and further management Medications: As prescribed and other medications as per discharge med reconciliation list. Stop taking Plavix. Scheduled Alprazolam (Alprazolam), 1 TAB PO QID, (Reported) Apixaban Base (Eliquis Starter Pack), 5 MG PO BID Aspirin (Aspirin Ec), 81 MG PO DAILY Atorvastatin Calcium (Atorvastatin Calcium), 40 MG PO DAILY Cholecalciferol (D-3-5), 2,000 UNIT PO DAILY, (Reported) Coenzyme Q10 (Ubidecarenone) (Coq-10), 100 MG OR DAILY, (Reported) Empagliflozin (Jardiance), 10 MG PO DAILY, (Reported) Esomeprazole Magnesium Trihydr (Nexium), 20 MG PO DAILY Fenofibrate (Fenofibrate), 145 MG PO HS, (Reported) Finasteride (Finasteride), 5 MG OR DAILY, (Reported) Finerenone (Kerendia), 10 MG PO DAILY, (Reported) Lisinopril (Lisinopril), 5 MG PO HS, (Reported) Metformin Hydrochloride (Metformin Hcl), 850 MG PO DAILY, (Reported) Metoprolol Tartrate (Lopressor Tablet), 1 TAB PO BID, (Reported) Multiple Vitamin (Multivitamins), 1 TAB PO DAILY, (Reported) Discontinued Medications Alfuzosin Hydrochloride (Alfuzosin Hcl Er), 10 MG PO BID, (Reported) Clopidogrel Bisulfate (Clopidogrel), 75 MG PO DAILY, (Reported) Diphenhydramine Hcl (Benadryl Allergy), 50 MG PO BID, (Reported) Krill Oil (Krill Oil), 1,000 MG PO DAILY, (Reported) Discharge Statement: "Patient was advised to return to the ER or call 911 if any headaches, dizziness, shortness of breath, chest pain, abdominal pain, bleeding, fevers, or worsening of medical condition. Patient was counseled about treatment plan, medications, possible side effects, patientverbalized understanding. All questions were answered to the best of my ability. This discharge took greater then 30 minutes in planning, reviewing documentation, counseling the patient, and discussing with other team members." ASSESSMENT ASSESSMENT Assessment status post pulmonary ebolism with thrombectomy, history of coronary artery disease, hypercholesterolemia Date of Service: Apr 03, 2025 Billing Provider: LYNDSEY GÓMEZ MD Common Visit Codes: 99221-DTA/OBS DISCH DAY <30MIN LYNDSEY GÓMEZ MD Apr 03, 2025 15:06
[2025-04-03] MEDS: APIXABAN 5 MG TAB PO ONE (16:03)
--- NOTE | 2025-04-04 07:43 | ECG ---
[facility] Test Date: 2025-04-01 Test Time: 14:35:19 Pat Name: SAMPSON IRAHETA Department: [facility] ED Patient ID: [facility]-[id number] Room: 0217T A Gender: M Washer Hand: CHONG : 1955 Requested By: RONAL WHITEHEAD Order Number: [id number] Reading MD: Darwin Doyle Measurements Intervals [place] Rate: 106 P: 55 MN: 159 QRS: 101 QRSD: 105 T: -33 QT: 348 QTc: 463 Interpretive Statements Sinus tachycardia Right axis deviation Borderline repolarization abnormality Baseline wander in lead(s) V1 Electronically Signed On 04-04-2025 18:16:08 PDT by Darwin Doyle Please click the below link to view image of tracing.
--- NOTE | 2025-04-04 09:17 | DVH ---
PROCEDURE: Pulmonary angiography and interventions Procedural Personnel Attending physician(s): Robles Lange Fellow physician(s): None Resident physician(s): None Advanced practice provider(s): None Pre-procedure diagnosis: Pulmonary emboli Post-procedure diagnosis: Same Indication: Pulmonary embolism Additional clinical history: None Complications: No immediate complications. IMPRESSION: Angiography of the bilateral main pulmonary arteries demonstrates minimal residual clot burden of the lingular artery following large bore mechanical thrombectomy. No residual clot burden of the right l robert. Decrease of pulmonary artery MAP (40 mmHg to 13 mmHg) Plan: Suture mediated venous hemostatic device over right common femoral vein access site to be removed 12- 24 hours post procedure. PROCEDURE SUMMARY: - Venous access with ultrasound guidance - Bilateral main pulmonary angiography - Superselective pulmonary angiography: None - Pulmonary arterial interventions as described below - Additional procedure(s): None PROCEDURE DETAILS: Pre-procedure Consent: Informed consent for the procedure including risks, benefits and alternatives was obtained a nd time-out was performed prior to the procedure. Preparation: The site was prepared and draped using maximal sterile barrier technique including cutan eous antisepsis. Anesthesia/sedation Level of anesthesia/sedation: Moderate sedation (conscious sedation) Anesthesia/sedation administered by: Independent trained observer under attending supervision with co ntinuous monitoring of the patient s level of consciousness and physiologic status Total intra-service sedation time (minutes): 90 Access Local anesthesia was administered. The vessel was sonographically evaluated and determined to be sims nt. Real time ultrasound was used to visualize needle entry into the vessel and a permanent image was stored. A 24 sheath was placed. Vein accessed: Right common femoral vein Access technique: Micropuncture set with 21 gauge needle Pulmonary angiography and interventions The pulmonary arterial system was catheterized using 6 [place] angled pigtail catheter/glidewire advan tage/amplatz wire. Indication for angiography: Diagnostic angiography - There was no prior catheter-based angiographic s tudy available and a full diagnostic study was performed. The decision to intervene was based on the diagnostic study. Vessel catheterized: Right main pulmonary artery Findings: No residual clot burden Vessel catheterized: Left main pulmonary artery Findings: Small volume clot burden of the lingular artery Thrombectomy Mechanical thrombectomy location: bilateral main pulmonary arteries, right interlobar artery, left lo wer lobe artery Mechanical thrombectomy device: Flowtriever (24 Fr and 20 Fr) Mechanical thrombectomy type: Aspiration Post-intervention angiography: Minimal residual clot burden of the lingular artery Pressure measurements Pressure measurements were obtained via multi-sidehole catheter. Location of pressure measurement: Main pulmonary artery - Systolic pressure (mmHg): Pre 50, post 29 - Diastolic pressure (mmHg): Pre 32, post 3 - Mean pressure (mmHg): Pre 40, post 13 Closure The sheath was removed and hemostasis was achieved. Venous closure technique: Other-FlowStasis Contrast Contrast agent: Visipaque 320 Contrast volume (mL): 40 Radiation Dose Fluoroscopy time (mm:ss): 16:03 Reference air kerma (mGy): 197 Kerma area product (Gy-cm2): 42.78 Additional Details Additional description of procedure: None Registry event: None/3/g Device used: None Equipment details: None Unique Device Identifiers: Not available Specimens removed: None Estimated blood loss (mL): 50 Standardized report: [email or web address] Attestation Signer name: Robles Lange I attest that I was present for the entire procedure. I reviewed the stored images and agree with the report as written.
--- NOTE | 2025-04-04 17:19 | ECG ---
[facility] Test Date: 2025-04-01 Test Time: 15:43:30 Pat Name: SAMPSON IRAHETA Department: Room: 0217T A Gender: M Welder Fabricator: JUANCARLOS : 1955 Requested By: NAZIA MAS Order Number: [id number] Reading MD: Darwin Doyle Measurements Intervals [place] Rate: 101 P: 100 [place]: 164 QRS: 82 QRSD: 96 T: 18 QT: 354 QTc: 459 Interpretive Statements Sinus tachycardia Nonspecific T wave abnormality Electronically Signed On 04-04-2025 18:42:45 PDT by Darwin Doyle Please click the below link to view image of tracing.
== END 2025-04-03 16:22 | disposition home or self-care (01) | DRG 163 ==
LOC: ER 14:34 → OVERFLOW 17:57 → TELE-CENTR 19:20
PROVIDERS: ADMIT Surgery; ATTEND Surgery
PROC: 02CR3ZZ Extirpation of Matter from Left Pulmonary Artery, Percutaneous Approach (ICD-10-PCS; principal; 2025-04-01)
PROC: 02CQ3ZZ Extirpation of Matter from Right Pulmonary Artery, Percutaneous Approach (ICD-10-PCS; 2025-04-01)
PROC: B31TYZZ Fluoroscopy of Left Pulmonary Artery using Other Contrast (ICD-10-PCS; 2025-04-01)
PROC: B31SYZZ Fluoroscopy of Right Pulmonary Artery using Other Contrast (ICD-10-PCS; 2025-04-01)
DX: I26.92 Saddle embolus of pulmonary artery without acute cor pulmonale (principal); I21.A1 Myocardial infarction type 2; R71.0 Precipitous drop in hematocrit; I25.10 Atherosclerotic heart disease of native coronary artery without angina pectoris; I10 Essential (primary) hypertension; E66.9 Obesity, unspecified; E78.00 Pure hypercholesterolemia, unspecified; E11.9 Type 2 diabetes mellitus without complications; Z79.899 Other long term (current) drug therapy; Z79.84 Long term (current) use of oral hypoglycemic drugs; Z82.49 Family history of ischemic heart disease and other diseases of the circulatory system; Z98.61 Coronary angioplasty status; Z68.32 Body mass index [BMI] 32.0-32.9, adult
CPT/HCPCS: 36415; 37184; 71045; 80048; 80053; 81003; 84484; 85025; 85610; 85730; 93005; 93306; 93970; 99152; 99291; 99292; C1769; C1894; G0378; J2250; Q9967